=== PATIENT | female | born 1975 | race Caucasian/White ===

== ENCOUNTER 2016-05-29 07:20 | Emergency (ER) | payer OTHER ==
[2016-05-29] MEDS ORDERED: DIPHENOXYLATE/ATROP TAB 2.5 MG TAB ONE (08:20)
[2016-05-29] MEDS ORDERED: DICYCLOMINE 20MG/2ML VIAL IM ONE (08:20)
[2016-05-29] MEDS ORDERED: ONDANSETRON 4 MG VIAL ONE (08:20)
[2016-05-29] MEDS ORDERED: SODIUM CHLORIDE 0.9% 1,000 ML ONE (08:21)
== END 2016-05-29 09:51 | disposition home or self-care (01) ==
LOC: ER 07:20
DX: K52.9 Noninfective gastroenteritis and colitis, unspecified (principal); N30.00 Acute cystitis without hematuria
CPT/HCPCS: 36415; 80053; 81001; 83690; 84703; 85025; 87088; 96361; 96374; 99283; J0500; J2405